=== PATIENT | male | born 1960 | race Caucasian/White ===

== ENCOUNTER 2018-08-03 22:56 | Inpatient (IN) | payer MEDICAID ==
[~2018-08-03] VITALS: Ht 175.3 cm; Wt 90.0 kg
[2018-08-03 23:15] VITALS: BP 133/63
[2018-08-03 23:24] LABS: HEMATOCRIT 37.9 % (42.0-54.0); HEMOGLOBIN 12.3 g/dL (13.5-17.5); MCH 33.4 pg (26.0-34.0); MCHC 32.5 g/dL (31.0-37.0); MEAN PLATELET VOLUME 9.7 fL (7.4-10.4); PLATELET COUNT 177 10x3/uL (130-400); RBC 3.68 10x6/uL (4.20-6.10); RDW 13.9 % (11.5-14.5); WBC 8.2 10x3/uL (4.8-10.8)
[2018-08-03 23:30] VITALS: BP 107/43
[2018-08-03 23:31] LABS: APPEARANCE CLEAR (CLEAR); BACTERIA NONE SEEN /hpf (NONE SEEN); BILIRUBIN NEGATIVE (NEGATIVE); COLOR YELLOW (YELLOW); EPITHELIAL CELLS NSEEN /hpf (0-5); GLUCOSE NEGATIVE (NEGATIVE); KETONE NEGATIVE (NEGATIVE); NITRITE NEGATIVE (NEGATIVE); PROTEIN TRACE mg/dL (NEGATIVE); SPECIFIC GRAVITY 1.015 (1.005-1.020); UROBILINOGEN NORMAL (NORMAL); WHITE CELLS - URINE RARE /hpf (0-5)
[2018-08-03 23:32] VITALS: BP 75/46
--- NOTE | 2018-08-03 23:32 | NUR ---
LEVOPHED INFUSION STARTED AT 10MCG.
[2018-08-03 23:35] VITALS: BP 67/43
[2018-08-03 23:39] LABS: UDS - AMPHET NEGATIVE QUAL (NEGATIVE); UDS - BARB NEGATIVE QUAL (NEGATIVE); UDS - BENZO NEGATIVE QUAL (NEGATIVE); UDS - COCAINE POSITIVE QUAL (NEGATIVE); UDS - OPIATE NEGATIVE QUAL (NEGATIVE); UDS - PCP NEGATIVE QUAL (NEGATIVE); UDS - THC NEGATIVE QUAL (NEGATIVE)
[2018-08-03 23:40] VITALS: BP 78/43
[2018-08-03 23:40] LABS: INR 1.89 (0.85-1.17); PROTIME 21.1 SECONDS (11.6-15.0)
--- NOTE | 2018-08-03 23:43 | NUR ---
PT TO CT VIA STRETCHER WITH RN, RT, AND RADIOLOGY.
[2018-08-03 23:46] VITALS: BP 88/55
[2018-08-03 23:48] LABS: APTT 56.3 SECONDS (22.8-39.4)
[2018-08-03 23:56] LABS: LYMPHOCYTES 42 % (15-50); MONOCYTES 6 % (2-11); NEUTROPHILS 47 % (40-80); PLATELET ESTIMATE NORMAL
[2018-08-04] VITALS (53 sets, daily range): BP systolic 71–137; BP diastolic 39–94; Ht 175.3 cm; Wt 90.0 kg
[2018-08-04 00:01] LABS: ALKALINE PHOSPHATASE 47 U/L (46-116); ALT (SGPT) 41 U/L (10-68); BILIRUBIN - TOTAL 0.07 mg/dL (0.2-1.3); CALCIUM 9.3 mg/dL (8.5-10.1); CARBON DIOXIDE 18.1 mmol/L (21.0-32.0); CHLORIDE - SERUM 103 mmol/L (98-107); CKMB 2.6 U/L (0.0-3.6); CREATINE KINASE 175 UL (21-232); CREATININE - SERUM 1.7 mg/dL (0.6-1.3); MAGNESIUM - SERUM 2.2 mg/dL (1.8-2.4); PROTEIN - SERUM 4.4 g/dL (6.4-8.2); SODIUM 139 mmol/L (136-145); THYROID STIMULATING HORMONE 1.09 uIU/mL (0.36-3.74); UREA NITROGEN 9 mg/dL (7-18); eGFR NON AFRICAN AMERICAN 44 mL/min (90-120)
[2018-08-04 00:02] LABS: CALC OSMOLALITY 295 mosm/kg (275-300); TROPONIN-I 0.177 ng/mL (0.000-0.060)
[2018-08-04 00:03] LABS: GLUCOSE 433 mg/dL (74-106); POTASSIUM - SERUM 2.2 mmol/L (3.5-5.1)
--- NOTE | 2018-08-04 00:32 | NUR ---
LEVOPHED RATE CHANGED TO 8MCG
--- NOTE | 2018-08-04 01:00 | NUR ---
PATIENT ARRIVED TO ICU ACCOMPANIED BY ED STAFF, ON VENT AND LEVOPHED, MONITORING EQUIPMENT PLACED PER ICU PROTOCOL
--- NOTE | 2018-08-04 03:00 | NUR ---
DR. STERN NOTIFIED OF ST HR'S IN 150 AND DROP IN PRESSURES. NEW ORDERS FOR BOLUS AND A.M. LABS RECEIVED
--- NOTE | 2018-08-04 05:00 | NUR ---
PATIENT REPOSITIONED, FAMILY AT BEDSIDE, UPDATE GIVEN, QUESTIONS ANSWERED
[2018-08-04 05:51] LABS: BASOPHILS 0.1 % (0-2); EOSINOPHILS 0.1 % (0-7); HEMATOCRIT 53.1 % (42.0-54.0); HEMOGLOBIN 18.8 g/dL (13.5-17.5); IMMATURE GRANULOCYTES 0.5 % (0-5); LYMPHOCYTES 3.7 % (15-50); MCH 34.2 pg (26.0-34.0); MCHC 35.4 g/dL (31.0-37.0); MCV 96.7 fL (80.0-100.0); MEAN PLATELET VOLUME 9.7 fL (7.4-10.4); MONOCYTES 5.4 % (2-11); NEUTROPHILS 90.2 % (40-80); PLATELET COUNT 183 10x3/uL (130-400); RBC 5.49 10x6/uL (4.20-6.10); RDW 13.9 % (11.5-14.5); WBC 19.6 10x3/uL (4.8-10.8)
[2018-08-04 05:53] LABS: CALCIUM 8.2 mg/dL (8.5-10.1); CREATININE - SERUM 1.9 mg/dL (0.6-1.3)
[2018-08-04 05:55] LABS: CARBON DIOXIDE 24.2 mmol/L (21.0-32.0); POTASSIUM - SERUM 4.2 mmol/L (3.5-5.1)
--- NOTE | 2018-08-04 07:00 | NUR ---
REPORT RECIEVED, SHIFT ASSESSMENT COMPLETE, PT IS UNRESPONSIVE ON VENT, FAMILY AT BEDSIDE, WILL CON'T TO MONITOR
--- NOTE | 2018-08-04 09:02 | NUR ---
DR. JUAREZ AT BEDSIDE, UPDATE GIVEN TO FAMILY, NEW ORDERS RECIEVED,
--- NOTE | 2018-08-04 11:00 | NUR ---
DR. STERN AT BEDSIDE, SPOKE AT LENGTH WITH FAMILY ABOUT PT POC, FAMILY HAS DECIDED TO TERMINALLY EXTUBATE,
--- NOTE | 2018-08-04 13:00 | NUR ---
FAMILY AT BEDSIDE, WILL CON'T TO MONITOR
--- NOTE | 2018-08-04 14:45 | NUR ---
TARAS NOTIFIED OF TERMINAL EXTUBATION,
--- NOTE | 2018-08-04 15:18 | NUR ---
PT HR DROPPING AT THIS TIME, FAMILY AT BEDSIDE
--- NOTE | 2018-08-04 15:20 | NUR ---
PT ASYSTOLE ON MONITOR, FAMILY AT BEDSIDE
--- NOTE | 2018-08-04 15:21 | NUR ---
PT HR DROPPING, FAMILY AT BEDSIDE
--- NOTE | 2018-08-04 15:23 | NUR ---
DR STERN AT BEDSIDE PRONOUNCED FAMILY GIVEN UDPATE
--- NOTE | 2018-08-04 15:25 | NUR ---
LOUISE UNDERWEAR TRIMMER CALLED TONIO SEPULVEDA
--- NOTE | 2018-08-04 15:36 | NUR ---
TARAS NOTIFIED OF PT
--- NOTE | 2018-08-04 15:47 | NUR ---
POST MORTEM CARE GIVEN
--- NOTE | 2018-08-04 15:51 | NUR ---
HOME NOTIFIED OF PT
--- NOTE | 2018-08-04 17:52 | MORECARE ---
CASE MANAGEMENT DISCHARGE SUMMARY PATIENT: GURWINDER NJ UNIT: [id number] ADM DATE: 08/03/18 AGE: 57 : 60 SEX: M ROOM/BED: D.2310 AUTHOR: ADRIANA BOO PHYSICIAN: REFERRING PHYSICIAN: HUA STERN MD DATE OF SERVICE: 08/04/18 Discharge Plan Patient Name: GURWINDER [place] Facility: [facility]:[place] : 1960 Planned Disposition: Anticipated Discharge Date: Discharge Date: 08/04/2018 Expected LOS: Initial Reviewer: [email or web address] Initial Review Date: 08/04/2018 Generated: 08/04/18 6:52 pm Patient Name: GURWINDER [place] Page [id number] at 1752 All edits/amendments must be made on the electronic document DICTATION DATE: 08/04/181751 PLANT HR MANAGER: [id number] 08/04/181751 RPT#: [id number] DC DATE:08/04/18 STATUS: DIS IN [facility] [address] [place] [address] END OF REPORT
== END 2018-08-04 13:23 | DRG 64 ==
LOC: D.ER 22:56 → EDBD 22:56 → D.ICU 23:55
PROVIDERS: Emergency Medicine; ADMIT Internal Medicine Nephrology; ATTEND Internal Medicine Nephrology
PROC: 5A1935Z Respiratory Ventilation, Less than 24 Consecutive Hours (ICD-10-PCS; principal; 2018-08-03)
PROC: 0BH17EZ Insertion of Endotracheal Airway into Trachea, Via Natural or Artificial Opening (ICD-10-PCS; 2018-08-03)
DX: I60.9 Nontraumatic subarachnoid hemorrhage, unspecified (principal); J96.01 Acute respiratory failure with hypoxia; J96.02 Acute respiratory failure with hypercapnia; N17.9 Acute kidney failure, unspecified; G93.1 Anoxic brain damage, not elsewhere classified; D68.4 Acquired coagulation factor deficiency; G93.40 Encephalopathy, unspecified; K92.2 Gastrointestinal hemorrhage, unspecified; I62.00 Nontraumatic subdural hemorrhage, unspecified; I46.9 Cardiac arrest, cause unspecified; I48.91 Unspecified atrial fibrillation; E87.6 Hypokalemia; F14.10 Cocaine abuse, uncomplicated; D50.9 Iron deficiency anemia, unspecified; I10 Essential (primary) hypertension; F17.200 Nicotine dependence, unspecified, uncomplicated